=== PATIENT | female | born 1945 | race Caucasian/White ===

== ENCOUNTER 2017-10-09 16:14 | Emergency (ER) | payer OTHER ==
[2017-10-09 16:50] VITALS: BP 156/87; PULSE 76; TEMP 98.5; BMI 27.3
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
[2017-10-09] MEDS ORDERED: IBUPROFEN 600 MG TABLET (FP) PO ONE (17:15)
== END 2017-10-09 17:54 | disposition home or self-care (01) ==
LOC: FER 16:14
DX: S09.90XA Unspecified injury of head, initial encounter (principal); V43.52XA Car driver injured in collision with other type car in traffic accident, initial encounter; Y93.89 Activity, other specified; Y92.410 Unspecified street and highway as the place of occurrence of the external cause; I10 Essential (primary) hypertension; E78.00 Pure hypercholesterolemia, unspecified
CPT/HCPCS: 70450-TC; 99281-25